=== PATIENT | female | born 1995 | race African-American/Black ===

== ENCOUNTER 2019-10-28 17:24 | Emergency (ER) | payer MEDICAID ==
[~2019-10-28] VITALS: Ht 165.1 cm; Wt 102.1 kg
--- NOTE | 2019-10-28 17:37 | NUR ---
ED Nurse Note: pt walked in to ED for C/O weakness and dysuria x 2 days. pt reports feeling nausea but no vomit
[2019-10-28 17:39] VITALS: BP 120/60
--- NOTE | 2019-10-28 17:44 | NUR ---
ED Nurse Note: urine sample collected and sent to lab
[2019-10-28 17:51] LABS: APPEARANCE,URINE CLEAR; BILIRUBIN, URINE NEGATIVE (NEGATIVE); GLUCOSE, URINE (UA) NEGATIVE (NEGATIVE); KETONES,URINE NEGATIVE (NEGATIVE); LEUKOCYTE ESTERASE ,URINE NEGATIVE (NEGATIVE); NITRITE,URINE NEGATIVE (NEGATIVE); PH,URINE 8 (4.5-8.0); PROTEIN,URINE NEGATIVE (NEGATIVE); UROBILINOGEN,URINE 1 MG/DL (0.0-1.0)
[2019-10-28] MEDS ORDERED: Phenazopyridine 200mg tab ORAL ONE ×2 (17:55→18:00)
--- NOTE | 2019-10-28 17:57 | Emergency Room Report ---
History of Present Illness General Chief Complaint: Female Urogenital Problems Source: Patient Present Illness HPI 24-year-old female presents to the emergency department complaining of urinary frequency and urgency in addition to 5 out of 10 severity dysuria x4 days. Patient also reports intermittent episodes of lower abdominal cramping and nausea x1 week. She denies vomiting. She denies constipation or diarrhea. Patient denies however she states she is sexually active and not currently taking control. Patient reports her last menstrual cycle was on the of last month. She denies vaginal discharge, sores, rashes or suspicion of STI. No other aggravating or relieving factors at this time. Denies fevers or chills. Allergies: Coded Allergies: No Known Allergies (Unverified , 10/28/19) COVID-19 Screening Contact w/high risk pt: No Recent Travel to affected area: No Experienced COVID-19 symptoms?: No Patient History Past Medical History: see triage record Past Surgical History: none Pertinent Family History: none Now: No Reviewed Nursing Documentation: PMH: Agreed; PSxH: Agreed Nursing Documentation-PMH Past Medical History: No Stated History Review of Systems All Other Systems: negative except mentioned in HPI Physical Exam Vital Signs Date Time Temp Pulse Resp B/P (MAP) Pulse Ox O2 Delivery O2 Flow Rate FiO2 10/28/19 17:30 98.6 93 24 111/58 (75) 98 Room Air Sp02 EP Interpretation: reviewed, normal General Appearance: no apparent distress, alert, GCS 15, non-toxic Head: normocephalic, atraumatic Eyes: bilateral eye normal inspection, bilateral eye PERRL ENT: hearing grossly normal, normal voice Neck: full range of motion Respiratory: lungs clear, normal breath sounds, speaking full sentences Cardiovascular #1: regular rate, rhythm Gastrointestinal: normal bowel sounds, non tender, soft, non-distended, no guarding Rectal: deferred Genitourinary: normal inspection, no CVA tenderness Musculoskeletal: back normal, normal range of motion, gait/station normal, non- tender Neurologic: alert, motor strength/tone normal, oriented x3, sensory intact, responsive, speech normal Psychiatric: judgement/insight normal Skin: no rash, normal color, normal inspection Lymphatic: no adenopathy Medical Decision Making PA Attestation Dr. Mckinney is my supervising Physician whom patient management has been discussed with. Diagnostic Impression: Primary Impression: Dysuria Additional Impression: Urinary frequency ER Course 24-year-old female presents to the emergency department complaining of urinary frequency and urgency in addition to 5 out of 10 severity dysuria x4 days. Patient also reports intermittent episodes of lower abdominal cramping and nausea x1 week. She denies vomiting. She denies constipation or diarrhea. Patient denies however she states she is sexually active and not currently taking control. Patient reports her last menstrual cycle was on the of last month. She denies vaginal discharge, sores, rashes or suspicion of STI. No other aggravating or relieving factors at this time. Denies fevers or chills. Ddx considered but are not limited to UTi , Pyelo, STI, Stone, Cystitis Vital signs: are WNL, pt. is afebrile H&PE are most consistent with UTI ORDERS: - UA labs are attached -- WNL -Urine Hcg: Negative ED INTERVENTIONS: Pyridium PO DISCHARGE: At this time pt. is stable for d/c to home. Will provide printed patient care instructions, and any necessary prescriptions. Care plan and follow up instructions have been discussed with the patient prior to discharge. Labs Test 10/28/19 17:37 Urine Color Yellow Urine Appearance Clear Urine pH 8 (4.5-8.0) Urine Specific [place] 1.015 (1.005-1.035) Urine Protein Negative (NEGATIVE) Urine Glucose (UA) Negative (NEGATIVE) Urine Ketones Negative (NEGATIVE) Urine Blood Negative (NEGATIVE) Urine Nitrite Negative (NEGATIVE) Urine Bilirubin Negative (NEGATIVE) Urine Urobilinogen 1 MG/DL (0.0-1.0) Urine Leukocyte Esterase Negative (NEGATIVE) Urine HCG, Qualitative Negative (NEGATIVE) Last Vital Signs Date Time Temp Pulse Resp B/P (MAP) Pulse Ox O2 Delivery O2 Flow Rate FiO2 10/28/19 17:39 98.3 79 19 120/60 99 Room Air Disposition: HOME, SELF-CARE Condition: Stable Scripts Phenazopyridine Hcl* (PYRIDIUM*) 200 Mg Tablet 200 MG ORAL THREE TIMES A DAY for 3 Days, #9 TAB 0 Refills Prov: Janna Ayala 10/28/19 Patient Instructions: Dysuria, Urinary Frequency Additional Instructions: Take medications as directed. REPEAT TEST IF YOU MISS YOU UPCOMING PERIOD Follow up with a Primary Care Provider/ [facility] in 3-5 days, even if your symptoms have resolved. Return sooner to ED if new symptoms occur, or current symptoms become worse. - Please note that this Emergency Department Report was dictated using [employer] desk agent technology software, occasionally this can lead to erroneous entry secondary to interpretation by the dictation equipment. Janna Ayala Oct 28, 2019 17:57
[2019-10-28 17:58] LABS: COLOR,URINE YELLOW
[2019-10-28] MEDS ORDERED: PHENAZOPYRIDIN200 MG ORAL (18:24)
[2019-10-28 18:27] VITALS: BP 126/68
--- NOTE | 2019-10-28 18:27 | NUR ---
ER DISCHARGE NOTE: Patient is cleared to be discharged per ERMD, pt is aox4, on room air, with stable vital signs. pt was given dc and prescription instructions, pt was able to verbalize understanding, pt id band removed without complications. pt is able to ambulate with steady gait. pt took all belongings.
== END 2019-10-28 18:27 | disposition home or self-care (01) ==
LOC: EMR 17:45
DX: R30.0 Dysuria (principal); R35.0 Frequency of micturition; R11.0 Nausea
CPT/HCPCS: 81003; 81025; Z7502; 99283